=== PATIENT | female | born 1980 | race Caucasian/White ===

== ENCOUNTER 2017-08-31 17:52 | Outpatient (CLI) | payer BC ==
[~2017-08-31] VITALS: Ht 162.6 cm; Wt 60.3 kg
[2017-08-31 18:01] VITALS: BP 126/77
--- NOTE | 2017-08-31 19:15 | History & Physical ---
History of Present Illness EDC per LMP: Sep 27, 2017 Estimated Gestational Age: 36 Chief Complaint Vaginal bleeding History of Present Illness 37yo at 36w0d presents with some darker brown vaginal bleeding today. She denies feeling UCx. She reports good FM. No preeclampsia symptoms. PNR reviewed. PNC by [facility] - transferred care from [facility] [place]. PNC c/b Rh negative. History Patient's Blood Type: A Negative Rubella Status: Immune Group B Strep Screen: Unknown Obstetrical History: G1: 38wk G2: Current Past Medical History: PMH: Microcytic anemia PSH: [place] teeth Allergies: Coded Allergies: No Known Drug Allergies (Unverified , 08/31/17) Social History: No T/E/D. . Review of Systems Constitutional: No Fever Eyes: No Vision Change Cardiovascular: No Chest Pain Respiratory: No Shortness of Breath Gastrointestinal: No Nausea, No Vomiting, No Diarrhea Genitourinary: No Dysuria Musculoskeletal: No Pain Psychiatric: No Depression, No Anxiety Exam General Exam Vital Signs VS normal General Apperance: Alert/Awake/No Acute Distress Neuro: No Gross deficits Eyes: Normal Extraocular Movement & Vison Cardiovascular: Regular Rate and Rhythm Respiratory: No Respiratory Distress, Clear to Auscultation Abdomen: Gravid - Non-Tender : Normal Musculoskeletal: No Weakness/Pain Extremities: No Cyanosis,Clubbing or Edema Integumentary: Skin Intact without Lesions or Rash Psychological: Alert & Oriented X3, Appropriate Mood & Affect Cervical Dialation: 4 Cervical Effacement (%): 60 Cervical Consistency: Soft Cervical Position: Mid Station: -2 Presentation: Vertex Uterine Contractions(Q min): 3 Uterine Contraction Strength: Mild UC Resting Tone: Soft Fetus FHT Category: I Medical Decision Making Pre-Admit Course Medical Record Review: Yes VTE Prophylasis: Adult Deep Vein Thrombosis/Pulmonary: No Pharmacological Contraindicati: Pt at Low Risk for VTE Mechanical Contraindications: Pt at Low Risk for VTE Assessment and Plan Problems: (1) Vaginal bleeding during Assessment & Plan: 37yo at 36wks here with some vaginal spotting. Based on her exam, I think this is due to cervical change. However, she is not feeling her UCx. She will hydrate and would like to go home to wait and see if things transition to labor. No tocolytics due to gestational age. GBS sent. (2) 36 weeks gestation of PRAKASH DELGADO MD Aug 31, 2017 18:57
[2017-08-31 19:38] VITALS: Ht 162.6 cm; Wt 60.3 kg
== END 2017-08-31 19:55 | disposition home or self-care (01) ==
LOC: UNDOADMIN 17:52 → OB 17:52 → L&D 17:52 → OB 17:52 → UNDODISIN 19:55 → L&D 19:55 → EDSTATUS 09-02 10:03
PROVIDERS: ATTEND Obstetrics & Gynecology
DX: O46.93 Antepartum hemorrhage, unspecified, third trimester (principal); Z3A.36 36 weeks gestation of pregnancy
CPT/HCPCS: 87077; 87081; 87186; 99213

== ENCOUNTER 2017-09-06 10:00 | Inpatient (IN) | payer BC ==
[~2017-09-06] VITALS: Ht 162.6 cm; Wt 59.9 kg
[2017-09-06] MEDS ORDERED: LIDOCAINE/SOD BICARB 8.4% SYR ONE (10:12)
[2017-09-06] MEDS ORDERED: LR(*) 1000 ML BAG 1,000 ML IV SCH (10:41)
[2017-09-06] MEDS ORDERED: OXYTOCIN 30 UNIT/D5LR 500 ML 500 ML IV PRN ×2 (10:41→15:17)
[2017-09-06] MEDS ORDERED: FAMOTIDINE(*) 20MG/50ML PREMIX 50 ML IVPB PRN (10:41)
[2017-09-06] MEDS ORDERED: FLUSH 10 ML SYR IVP PRN (10:45)
[2017-09-06] MEDS ORDERED: cefOXitin SOD 2 GM VIAL 2 GM in NS(*) 0.9% 100 ML BAG 100 ML IVPB PRN (10:45)
[2017-09-06] MEDS ORDERED: LIDOCAINE/SOD BICARB 8.4% SYR SC PRN (10:45)
[2017-09-06] MEDS ORDERED: METOCLOPRAMIDE 10 MG/2 ML SDV IVP PRN (10:45)
[2017-09-06] MEDS ORDERED: LIDOCAINE 1% LOCAL 300 MG/30ML INJ PRN (10:45)
[2017-09-06] MEDS ORDERED: PENICILLIN G 5 MILLUN/100 ML 100 ML IVPB ONE (11:00)
[2017-09-06 11:05] LABS: PLATELET COUNT, AUTOMATED 273 K/uL (150-450)
[2017-09-06 11:10] VITALS: BP 111/74; Ht 162.6 cm; Wt 59.9 kg
[2017-09-06] MEDS ORDERED: BUPIVACAINE 0.25% MPF INJ EPI PRN (12:05)
[2017-09-06] MEDS ORDERED: LIDOCAINE/PF 2% 200MG/10ML AMP 200 MG/10 ML AMPUL EPI PRN (12:05)
[2017-09-06] MEDS ORDERED: fentaNYL CITR 100 MCG/2 ML AMP IT PRN (12:05)
[2017-09-06] MEDS ORDERED: BUPIVACAINE 0.5% INJ 30ML VIAL EPI PRN (12:05)
[2017-09-06] MEDS ORDERED: FENTANYL/ROPIVACAINE 100 ML BAG EPI PRN (12:05)
[2017-09-06] MEDS ORDERED: LIDO/EPI 2% MPF 1:200,000 20ML EPI PRN (12:05)
[2017-09-06] MEDS ORDERED: ePHEDrine 25 MG/5 ML DISP.SYR IVP PRN (12:05)
[2017-09-06] MEDS ORDERED: EPIDURAL KEYS XX PRN (14:00)
[2017-09-06] MEDS: PENICILLIN G 2.5 MILLUN/100 ML 100 ML IVPB SCH ×2 (15:08→18:55)
[2017-09-06] MEDS ORDERED: TERBUTALINE SULF 1 MG/ML VIAL SUBQ PRN (15:20)
--- NOTE | 2017-09-06 15:42 | History & Physical ---
History of Present Illness Age of Patient: 37 : 2 Para or TPAL: 1 EDC per LMP: Sep 27, 2017 Estimated Gestational Age: 37.0 Chief Complaint Rupture of membranes History of Present Illness Presents at 37 weeks with report of loss of fluid this morning at 0930. Has been gushing since. She has been 5-6 cm over this past week when thought she was going to deliver earlier but managed conservatively. She is GBS positive. Was transfer care at 32 weeks from [facility] although she is [place]. has been up to date and normal with no abnormal labs from her care in [facility] and no current problems. Her first was delivered at 38 weeks in [place], vaginal delivery. Her H/H on 08/13/17 showed microcytic anemia and hgb electrophoresis was normal. She was started on iron supplementation. She is A negative and did receive Rhogam. Past Medical, Surgical, Family and Obstetric Histories reviewed. Please see [facility] [place] chart. History Patient's Blood Type: A Negative Rubella Status: Immune Group B Strep Screen: Positive Obstetrical History: vaginal delivery x 1 = 6lbs 10oz. Allergies: Coded Allergies: No Known Drug Allergies (Unverified , 08/31/17) Social History: No T/E/D. . Med Rec Home Meds No Active Prescriptions or Reported Meds Review of Systems All Systems Reviewed/Normal: Yes, Except as Noted Genitourinary: Other (leaking fluid) Exam General Exam Vital Signs Vital Signs Date Time Temp Pulse Resp B/P (MAP) Pulse Ox O2 Delivery O2 Flow Rate FiO2 09/06/17 11:10 99.8 88 18 111/74 (86) 98 Room Air General Apperance: Alert/Awake/No Acute Distress Neuro: No Gross deficits Cardiovascular: Regular Rate and Rhythm Respiratory: No Respiratory Distress Abdomen: Soft, Non-Tender, Non-Distended, Gravid - Non-Tender Psychological: Alert & Oriented X3, Appropriate Mood & Affect Cervical Dialation: 5.5 Cervical Effacement (%): 100 Cervical Consistency: Soft Cervical Position: Anterior Station: -1 Presentation: Vertex Uterine Contractions(Q min): 10 Uterine Contraction Strength: Mild Fetus Heart Tone Variabilty: Moderate FHT Accelerations: 15X15 FHT Category: I Medical Decision Making Data Points Result Diagram: 09/06/17 1058 VTE Prophylasis: Adult Deep Vein Thrombosis/Pulmonary: No Pharmacological Contraindicati: Pt at Low Risk for VTE Mechanical Contraindications: Pt at Low Risk for VTE 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 Expecting . Epidural if needed. (3) Group B streptococcal carriage complicating Assessment & Plan: PCN prophylaxis. Initial delay in active management to allow enough time for first dose and 4 hours exposure. Problem Qualifiers (1) Premature rupture of membranes: PROM onset of labor timing: onset of labor within 24 hours of rupture PROM gestational age: -third trimester Qualified Codes: O42.013 - premature rupture of membranes, onset of labor within 24 hours of rupture, third trimester CHONG VICTORIA MD Sep 06, 2017 15:42
[2017-09-06] MEDS ORDERED: ONDANSETRON 4 MG/2 ML VIAL IVP PRN (16:15)
[2017-09-06] MEDS ORDERED: cefOXitin/DEX(*) 2GM/50ML PREM 50 ML IVPB PRN (18:05)
[2017-09-06] MEDS: fentaNYL CITR 100 MCG/2 ML AMP IVP PRN ×2 (18:18→18:21)
[2017-09-06] MEDS ORDERED: BENZOCAINE 20% 60 ML BTL TP PRN (19:40)
[2017-09-06] MEDS ORDERED: GLYCERIN/WITCH HAZEL LEAF 1 PK TOP PRN (19:40)
[2017-09-06] MEDS ORDERED: APAP/HYDROCODONE 325/5 TAB PO PRN (19:40)
[2017-09-06] MEDS ORDERED: MAGNESIUM HYDROXIDE* 30ML UDCP PO PRN (19:40)
[2017-09-06] MEDS ORDERED: LANOLIN OINT 7 GM TUBE TP PRN (19:40)
[2017-09-06] MEDS ORDERED: ACETAMINOPHEN 325 MG TAB PO PRN (19:40)
[2017-09-06] MEDS ORDERED: HYDROCORTISONE 2.5% CR 30GM TB PR PRN (19:40)
[2017-09-06] MEDS ORDERED: INFLUENZA VIRUS VAC 0.5 ML SYR IM ONLY ONE (19:40)
--- NOTE | 2017-09-06 19:50 | OB Delivery Note ---
Delivery Note Vaginal Delivery Type: Spont. Vaginal Delivery Delivery Date: Sep 06, 2017 Delivery Time: 19:21 Estimated Gestational Age(wks): 37 Sex: Female [place] Apgars: 1 Minute (8), 5 Minute (9) Repair Needed: Laceration, 1st Degree Estimated Blood Loss: 100 Delivery Complications: Laceration (first degree) Notes: Admitted with PROM and category 1 strip. Received prophylactic abx x 4 hours before active management. Was 5 cm on admission. Pitocin started at low dose and progression to 7 cm by 1735. Was 8 cm by 1811 and completely dilated and pushing by 1899. I presented with the head . Ritkin maneuver performed to stabilize the perineum while a maternal push effected delivery over a first degree laceration. A hand presented at the chest. Shoulders delivered with maternal push and perineal manipulation. Terminal meconium noted. Baby had fascial bruising immediately noted and excellent cry and respiratory effort at cord clamp. Tone was improving as handed off. Grimace with mouth and nose suctioning. My 1 min = 8 (1off for color and tone) and 5 min = 9 (1 off for color). Placenta delivered spontaneous and intact. Uterus tone improved immediately and scant bleeding. Repair with 2-0 chromic x 2 figure 8 stitches. 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
[2017-09-06] MEDS: DOCUSATE CALCIUM 240 MG CAP PO SCH (20:15)
[2017-09-06] MEDS: IBUPROFEN 800 MG TAB PO SCH (20:15)
[2017-09-06 20:34] VITALS: BP 133/65
[2017-09-06] MEDS ORDERED: LIDOCAINE 1% LOCAL 300 MG/30ML 30 ML ONE (20:56)
[2017-09-06 21:03] VITALS: BP 116/71
[2017-09-07 00:30] VITALS: BP 97/51
[2017-09-07 04:30] VITALS: BP 114/64
[2017-09-07] MEDS: IBUPROFEN 800 MG TAB PO SCH ×2 (05:30→13:13)
[2017-09-07] MEDS ORDERED: PENICILLIN G 2.5 MILLUN/100 ML 100 ML IVPB SCH (07:00)
[2017-09-07] MEDS: DOCUSATE CALCIUM 240 MG CAP PO SCH (09:17)
[2017-09-07 09:55] VITALS: BP 110/69
--- NOTE | 2017-09-07 12:15 | OB/GYN Progress Note ---
OB Subjective Progress Notes Subjective Doing well. Pain controlled and ambulating and voiding well. Ready to go home today. : Voiding Well Pain: Mild OB Objective Physical Exam Vital Signs Date Time Temp Pulse Resp B/P (MAP) Pulse Ox O2 Delivery O2 Flow Rate FiO2 09/07/17 09:55 99.3 83 18 110/69 (83) 97 Room Air General Appearance: Alert/Awake/No Acute Distress Neurological: No Gross deficits Cardiovascular: Normal Rhythm & Peripheral Pulses, Regular Rate and Rhythm Respiratory: No Respiratory Distress, Clear to Auscultation Abdomen: Soft, Non-Tender, Non-Distended, Fundus Firm, Non-Tender Integumentary: Skin Intact without Lesions or Rash Psychological: Alert & Oriented X3, Appropriate Mood & Affect Result Diagram: 09/07/17 0601 Assessment and Plan 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
--- NOTE | 2017-09-07 12:16 | OB/GYN Discharge Summary ---
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 Gaona [phone] Follow up in: 6 wks PP or PO Discharge Diet: As Tolerates Discharge Activity: As Tolerates, No Heavy Lifting x 6 wks, No Heavy Lifting > 10lb, Pelvic Rest Copies to: FREDY GAONA MD Problem Qualifiers (1) Premature rupture of membranes: PROM onset of labor timing: onset of labor within 24 hours of rupture PROM gestational age: -third trimester Qualified Codes: O42.013 - premature rupture of membranes, onset of labor within 24 hours of rupture, third trimester FREDY GAONA MD Sep 07, 2017 12:16
[2017-09-07] MEDS ORDERED: IBUP800T37 PO (12:18)
[2017-09-07 13:50] VITALS: BP 115/74
[2017-09-07 20:00] VITALS: BP 108/77
[2017-09-08] MEDS ORDERED: MEASLES,MUMP,RUBELLA VAC 0.5ML SUBQ ONE (09:00)
[2017-09-08] MEDS ORDERED: DIPHTH/TETANUS/ACEL. PERTUSSIS IM ONLY ONE (09:00)
== END 2017-09-07 19:30 | disposition home or self-care (01) | DRG 775 ==
LOC: OB 10:00
PROVIDERS: ADMIT Obstetrics & Gynecology; ATTEND Obstetrics & Gynecology
PROC: 10E0XZZ Delivery of Products of Conception, External Approach (ICD-10-PCS; principal; 2017-09-06)
PROC: 0HQ9XZZ Repair Perineum Skin, External Approach (ICD-10-PCS; 2017-09-06)
PROC: 3E0334Z Introduction of Serum, Toxoid and Vaccine into Peripheral Vein, Percutaneous Approach (ICD-10-PCS; 2017-09-07)
DX: O42.013 Preterm premature rupture of membranes, onset of labor within 24 hours of rupture, third trimester (principal); O36.0130 Maternal care for anti-D [Rh] antibodies, third trimester, not applicable or unspecified; O70.0 First degree perineal laceration during delivery; O77.0 Labor and delivery complicated by meconium in amniotic fluid; O99.824 Streptococcus B carrier state complicating childbirth; O99.02 Anemia complicating childbirth; Z37.0 Single live birth; Z3A.37 37 weeks gestation of pregnancy
CPT/HCPCS: 36415; 85025; 85027; 85461; 86850; 86870; 86900; 86901; J2001; J2540; J2590; J2791; J3010; J7120